=== PATIENT | female | born 1965 | race American Indian/Alaskan Native ===

== ENCOUNTER 2020-03-01 20:18 | Emergency (ER) | payer SELFPAY ==
[2020-03-01 20:28] VITALS: BP 102/73
--- NOTE | 2020-03-01 21:16 | Emergency Department Report ---
Chief Complaint: Medical Clearance Stated Complaint: WEAKNESS Time Seen by Provider: 03/01/20 21:16 - HPI History of Present Illness: This is a 54-year-old female with a history of HIV medication on medication who presents to the ED requesting a medication refill due to him having dizziness or weakness and syncopal episodes without taking his HIV medication. Patient states he is visiting from [place] and is unable to get his medication. Patient states he does not want a syncopal episode while he was here. Is not returning for a week. He denies any fever, chills, cough, runny nose, chest pain or any other symptoms. - ROS Review of Systems: As noted in HPI - Exam Vital Signs: Vital Signs 03/01/20 20:26 Temperature 98.9 F Pulse Rate 71 Respiratory 18 Rate Blood Pressure 102/73 O2 Sat by Pulse 97 Oximetry Physical Exam: GENERAL: Alert and oriented x3, no apparent distress, Normal Gait, atraumatic. SKIN: Warm and dry, No lesions, No ulceration or induration present. MSE screening note: Focused history and physical exam performed. Due to findings the following was ordered: ED Medical Decision Making - Medical Decision Making 54-year-old female presents with medication refill. ED Disposition for MSE Clinical Impression: Medication refill Disposition: Z- MED SCREENING EXAM-LEFT Is pt being admited?: No Does the pt Need Aspirin: No Condition: Stable Instructions: Human Immunodeficiency Virus Infection (ED) Additional Instructions: Make sure to follow up with the primary care physician as discussed. Take all your medications as you've been prescribed. If you have any worsening symptoms or develop new symptoms please return to ED immediately. Prescriptions: Emtricitabine/Tenofov Alafenam [Descovy 200-25 mg Tablet] 1 each PO DAILY #60 tablet Raltegravir Potassium [Isentress Hd] 2 tab PO DAILY #60 tablet Referrals: PRIMARY CARE, [Primary Care Provider] - 3-5 Days [facility] [Outside] - 3-5 Days [facility] [Outside] - 3-5 Days Forms: Work/School Release Form(ED) Time of Disposition: 21:18
== END 2020-03-01 21:30 | disposition left against medical advice (07) ==
LOC: ED 20:18
DX: R53.1 Weakness (principal); Z53.21 Procedure and treatment not carried out due to patient leaving prior to being seen by health care provider